=== PATIENT | female | born 1980 | race Caucasian/White ===

== ENCOUNTER 2020-11-28 07:41 | Emergency (ER) | payer BC, OTHER, SELFPAY ==
[~2020-11-28] VITALS: Ht 170.2 cm; Wt 73.9 kg
[2020-11-28] MEDS ORDERED: ACETAMINOPHEN 500 MG TABLET ONE (08:27)
[2020-11-28 08:29] LABS: BASOPHILS % (AUTO) 0 % (0-1); EOSINOPHILS % (AUTO) 0 % (1-7); LYMPHOCYTES % (AUTO) 10 % (22-44); MD NO; MEAN CORPUSCULAR HEMOGLOBIN 30.6 pg (27.0-34.8); MEAN CORPUSCULAR HGB CONC 34.6 g/dL (32.4-35.8); MEAN PLATELET VOLUME 8.1 fL (7.4-10.4); MONOCYTES % (AUTO) 4 % (2-9); NEUTROPHILS % (AUTO) 85 % (42-75); PLATELET COUNT 211 x10^3/uL (130-400); RED BLOOD COUNT 4.07 x10^6/uL (3.82-5.3); RED CELL DISTRIBUTION WIDTH 12.5 % (9.6-15.2)
[2020-11-28] MEDS ORDERED: ACETAMINOPHEN 500 MG TABLET PO ONE (08:30)
[2020-11-28] MEDS ORDERED: AMPICILLIN/SULBACTAM 3 GM in SODIUM CHLORIDE 0.9% 100 ML IV ONE (08:30)
[2020-11-28] MEDS ORDERED: SODIUM CHLORIDE 0.9% 1,000ML IVBOLUS ONE (08:30)
--- NOTE | 2020-11-28 08:38 | NUR ---
ERP IN TO EVAL PT, PT WITH NOTED REDNESS AND SWELLING/PAIN TO L BREAST. HAD BEEN ON ABX FROM OB, TOLD TO COME HERE TO CHANGE ABX. PT STATES UNABLE TO PUMP R BREAST D/T PAIN. ORDERS RECIEVEID. PIV INITIATED AND LABS DRAWN. BC DRAWN SET ASIDE, PER ERP OK TO HANG ABX AT THIS TIME, NO BC ORDER. PT DENIES ABILITY TO PROVIDE UA, STATES "IM TOO DEHYDRATED" WILL ATTEMPT AFTER BOLUS. PT MEDICATED PER SEP. US NOW AT BEDSIDE, S/O AT BEDSIDE ASSISTING PT WITH MULTIPLE REQUESTS FOR REPOSITION FOR COMFORT. NO OTHER NEEDS AT THIS TIME.
[2020-11-28 08:39] LABS: ALBUMIN 3.5 g/dL (3.4-5.0); ANION GAP 7 mmol/L (5-15); CALCIUM 8.7 mg/dL (8.5-10.1); CHLORIDE 106 mmol/L (98-107); CREATININE 0.71 mg/dL (0.55-1.02)
[2020-11-28] MEDS ORDERED: KETOROLAC 30 MG/1 ML ONE (09:16)
[2020-11-28] MEDS ORDERED: KETOROLAC 30 MG/1 ML IVPush ONE (09:30)
[2020-11-28 09:51] VITALS: BP 112/72
== END 2020-11-28 10:07 | disposition home or self-care (01) ==
LOC: ED 09:07
DX: H70.001 Acute mastoiditis without complications, right ear (principal); R50.9 Fever, unspecified; N64.4 Mastodynia
CPT/HCPCS: 36415; 71045; 76641; 80048; 82040; 83605; 85025; 96365; 96375; 99285; J0295; J1885; J7030